=== PATIENT | female | born 1970 | race African-American/Black ===

== ENCOUNTER 2017-08-03 14:40 | Emergency (ER) | payer BC ==
[2017-08-03 15:28] LABS: Bilirubin Negative (Negative); Blood, Urine Small (Negative); Clarity CLEAR (Clear); Glucose, Urine (Dipstick) Negative (Negative); Leukocyte Negative (Negative); Nitrite Negative (Negative); Protein, Urine (Dipstick) Negative (Neg-Trace); Specific Gravity, Urine 1.041 (1.002-1.036); pH, Urine 5.5 (5.0-9.0)
[2017-08-03 15:35] LABS: Bacteria/HPF None Seen HPF (None Seen); Hyaline Casts/LPF 0-3 HYALINE CAST LPF (0-3 Hyaline); Pathc Cast-AUWi Flag 0.58 (0-2.49); RBC/HPF 21-50 HPF (0-3); WBC/HPF 0-3 HPF (0-3)
[2017-08-03 15:49] LABS: #Eosinphils 0.1 thou/uL (0.0-0.7); #Lymphocytes 1.8 thou/uL (1.20-3.40); #Monocytes 0.9 thou/uL (0.11-0.59); #Neutrophils 3.5 thou/uL (1.40-6.50); %Basophils 0.8 % (0.0-1.0); %Eosinophils 1.3 % (0.0-10.0); %Lymphocytes 28.5 % (21.0-51.0); %Monocytes 14.1 % (0.0-10.0); %Neutrophils 55.4 % (42.0-75.0); Hemoglobin 12.3 g/dL (12.0-16.0); Mean Corpuscular HGB CONC 33.8 g/dL (32.0-36.0); Mean Corpuscular Hemoglobin 31.7 pg (27.0-31.0); Mean Corpuscular Volume 93.8 fl (81.0-99.0); Mean Platelet Volume 6.7 fL (7.4-10.4); Platelet Count 242 thou/uL (130-400); RBC Distribution Width 12.1 % (11.5-14.5); Red Blood Cell (RBC) Count 3.87 mill/uL (4.20-5.40); White Blood Cell (WBC) Count 6.4 thou/uL (4.8-10.8)
[2017-08-03 16:12] LABS: ALT (SGPT) 31 U/L (8-55); AST (SGOT) 35 U/L (5-34); Albumin 3.8 g/dL (3.5-5.0); Alkaline Phosphatase 64 U/L (40-150); Anion Gap 9 mmol/L (10-20); BUN (Urea Nitrogen) 16 mg/dL (7.0-18.7); Bilirubin, Total 0.3 mg/dL (0.2-1.2); Calc. Creatinine Clearance 0 mL/min (70-130); Calcium 9.2 mg/dL (7.8-10.44); Carbon Dioxide 28 mmol/L (22-29); Chloride 106 mmol/L (98-107); Estimated GFR-MDRD 80; Globulin 3.5 g/dL (2.4-3.5); Glucose 84 mg/dL (70-105); Potassium 3.5 mmol/L (3.5-5.1); Protein, Total 7.3 g/dL (6.0-8.3); Sodium 139 mmol/L (136-145)
== END 2017-08-03 16:44 | disposition home or self-care (01) ==
LOC: ERS 14:40
DX: K13.0 Diseases of lips (principal); R11.2 Nausea with vomiting, unspecified; R31.9 Hematuria, unspecified; F41.9 Anxiety disorder, unspecified; Z79.899 Other long term (current) drug therapy
CPT/HCPCS: 36415; 80053; 81003; 81015; 85025; 99284

== ENCOUNTER 2017-08-29 17:13 | Emergency (ER) | payer BC, SELFPAY | END 2017-08-29 17:30 | disposition home or self-care (01) | LOC: ERS 17:13 | DX: L08.9 Local infection of the skin and subcutaneous tissue, unspecified (principal); F41.9 Anxiety disorder, unspecified | CPT/HCPCS: 99282 ==

== ENCOUNTER 2017-09-26 11:37 | Emergency (ER) | payer SELFPAY | END 2017-09-26 13:37 | disposition home or self-care (01) | LOC: ERS 11:37 | DX: M25.561 Pain in right knee (principal); F41.9 Anxiety disorder, unspecified; Z79.899 Other long term (current) drug therapy | CPT/HCPCS: 99283 ==

== ENCOUNTER 2017-10-11 14:38 | Emergency (ER) | payer SELFPAY ==
[2017-10-11 15:39] LABS: #Basophils 0.1 thou/uL (0.0-0.2); #Eosinphils 0.1 thou/uL (0.0-0.7); #Lymphocytes 2.4 thou/uL (1.20-3.40); #Monocytes 0.8 thou/uL (0.11-0.59); #Neutrophils 5.3 thou/uL (1.40-6.50); %Basophils 0.6 % (0.0-1.0); %Eosinophils 1.4 % (0.0-10.0); %Lymphocytes 27.8 % (21.0-51.0); %Neutrophils 61.1 % (42.0-75.0); Hemoglobin 12.1 g/dL (12.0-16.0); Mean Corpuscular HGB CONC 33.5 g/dL (32.0-36.0); Mean Corpuscular Hemoglobin 32.1 pg (27.0-31.0); Mean Corpuscular Volume 95.6 fl (81.0-99.0); Mean Platelet Volume 6.7 fL (7.4-10.4); Platelet Count 304 thou/uL (130-400); RBC Distribution Width 11.9 % (11.5-14.5); Red Blood Cell (RBC) Count 3.77 mill/uL (4.20-5.40); White Blood Cell (WBC) Count 8.7 thou/uL (4.8-10.8)
[2017-10-11 16:03] LABS: ALT (SGPT) 27 U/L (8-55); AST (SGOT) 33 U/L (5-34); Albumin 3.8 g/dL (3.5-5.0); Alkaline Phosphatase 63 U/L (40-150); Anion Gap 9 mmol/L (10-20); BUN (Urea Nitrogen) 15 mg/dL (7.0-18.7); Bilirubin, Total 0.3 mg/dL (0.2-1.2); Calc. Creatinine Clearance 0 mL/min (70-130); Calcium 9.3 mg/dL (7.8-10.44); Carbon Dioxide 27 mmol/L (22-29); Chloride 107 mmol/L (98-107); Estimated GFR-MDRD Greater than 90; Globulin 3.6 g/dL (2.4-3.5); Glucose 79 mg/dL (70-105); Lipase 46 U/L (8-78); Potassium 3.8 mmol/L (3.5-5.1); Protein, Total 7.4 g/dL (6.0-8.3); Sodium 139 mmol/L (136-145)
[2017-10-11 17:30] LABS: Bilirubin Negative (Negative); Blood, Urine Negative (Negative); Clarity CLEAR (Clear); Glucose, Urine (Dipstick) Negative (Negative); Leukocyte Negative (Negative); Nitrite Negative (Negative); Protein, Urine (Dipstick) Negative (Neg-Trace); Specific Gravity, Urine 1.028 (1.002-1.036); pH, Urine 6.5 (5.0-9.0)
[2017-10-11 17:31] LABS: Pregnancy Test - Urine (BHCG) Negative (Negative); Pregu Control Background? CLEAR/WHITE (CLR/WHITE); Pregu Control Bar Appear? YES (CONTROL BAR); Specific Gravity 1.028 (1.002-1.036)
== END 2017-10-11 17:34 | disposition home or self-care (01) ==
LOC: ERS 14:38
DX: R11.2 Nausea with vomiting, unspecified (principal); F41.9 Anxiety disorder, unspecified; Z79.899 Other long term (current) drug therapy
CPT/HCPCS: 36415; 80053; 81003; 81025; 82274; 83690; 85025; 99284

== ENCOUNTER 2017-10-20 05:39 | Emergency (ER) | payer SELFPAY | END 2017-10-20 09:15 | disposition home or self-care (01) | LOC: ERS 05:39 | DX: M23.206 Derangement of unspecified meniscus due to old tear or injury, right knee (principal); M25.561 Pain in right knee; F41.9 Anxiety disorder, unspecified; Z79.899 Other long term (current) drug therapy | CPT/HCPCS: 99283 ==

== ENCOUNTER 2018-02-06 15:34 | Emergency (ER) | payer SELFPAY | END 2018-02-06 16:03 | disposition home or self-care (01) | LOC: ERS 15:34 | DX: S70.01XA Contusion of right hip, initial encounter (principal); S40.021A Contusion of right upper arm, initial encounter; W18.30XA Fall on same level, unspecified, initial encounter | CPT/HCPCS: 99283 ==

== ENCOUNTER 2018-05-18 14:01 | Emergency (ER) | payer SELFPAY ==
[2018-05-18] MEDS ORDERED: Ibuprofen 200 MG TAB ONE (14:32)
--- NOTE | 2018-05-18 15:16 | RAD ---
THREE VIEWS RIGHT THIRD TOE: Comparison: None. History: Right third toe pain and swelling. FINDINGS: Three views of the right third toe shows a spiral fracture of the proximal phalanx with surrounding s oft tissue swelling. This fracture is extraarticular. No other fractures or dislocations are seen. IMPRESSION: Proximal phalanx fracture of the third toe. POS: [facility]
== END 2018-05-18 15:16 | disposition home or self-care (01) ==
LOC: ERS 14:01
DX: S92.511A Displaced fracture of proximal phalanx of right lesser toe(s), initial encounter for closed fracture (principal); F41.9 Anxiety disorder, unspecified; F32.9 Major depressive disorder, single episode, unspecified; W01.0XXA Fall on same level from slipping, tripping and stumbling without subsequent striking against object, initial encounter

== ENCOUNTER 2018-09-18 10:03 | Emergency (ER) | payer SELFPAY | END 2018-09-18 10:45 | disposition home or self-care (01) | LOC: ERS 10:03 | DX: M25.561 Pain in right knee (principal); F41.9 Anxiety disorder, unspecified; Z79.899 Other long term (current) drug therapy | CPT/HCPCS: 99283 ==

== ENCOUNTER 2019-12-15 08:02 | Emergency (ER) | payer OTHER ==
[2019-12-15] MEDS ORDERED: Ibuprofen 800 MG TAB ONE (09:19)
--- NOTE | 2019-12-15 09:39 | RAD ---
EXAM: 4 views of the right knee HISTORY: Knee pain after fall COMPARISON: None FINDINGS: No knee effusion is seen. There is no evidence of acute fracture or dislocation. Mild femor otibial compartment degenerative changes are seen. No soft tissue swelling is present. IMPRESSION: Mild degenerative changes without evidence of acute osseous abnormality.
--- NOTE | 2019-12-15 10:02 | RAD ---
RIGHT KNEE 1 VIEW: Date: 12/15/2019 HISTORY: Injury from a fall. COMPARISON: Additional views right knee dated 12/15/2019. FINDINGS: Osteoarthrosis and degenerative changes of the right knee joint. The sunrise view demonstrates some m inimal arthrosis changes, particularly involving the lateral femoral patellar compartment. No acute f racture. IMPRESSION: Arthrosis and degenerative change without acute fracture. POS: [facility]
[2019-12-16 13:43] LABS: SARS-CoV-2 MS2 Positive; SARS-CoV-2 N Gene Negative; SARS-CoV-2 S Gene Negative; SARS-CoV-2 by NAA Not Detected (NotDetected); SARS-CoV-2 orf1ab Negative
== END 2019-12-15 09:48 | disposition home or self-care (01) ==
LOC: ERS 08:02
DX: M25.561 Pain in right knee (principal); R19.7 Diarrhea, unspecified; Z20.828 Contact with and (suspected) exposure to other viral communicable diseases; W18.30XA Fall on same level, unspecified, initial encounter
CPT/HCPCS: 87635; U0003

== ENCOUNTER 2020-07-22 10:49 | Emergency (ER) | payer SELFPAY ==
[2020-07-22] MEDS ORDERED: HYDROcodone/Acetaminophen 5/325 mg Tablet ONE (12:49)
== END 2020-07-22 13:17 | disposition home or self-care (01) ==
LOC: ERS 10:49
DX: S62.654A Nondisplaced fracture of middle phalanx of right ring finger, initial encounter for closed fracture (principal); M25.561 Pain in right knee; W19.XXXA Unspecified fall, initial encounter; Z79.899 Other long term (current) drug therapy

== ENCOUNTER 2020-08-18 12:07 | Emergency (ER) | payer OTHER, SELFPAY ==
[2020-08-18] MEDS ORDERED: Ketorolac Tromethamine 30 MG/ML VIAL ONE (12:36)
== END 2020-08-18 13:42 | disposition home or self-care (01) ==
LOC: ERS 12:07
DX: M25.561 Pain in right knee (principal); S62.650D Nondisplaced fracture of middle phalanx of right index finger, subsequent encounter for fracture with routine healing; I10 Essential (primary) hypertension; Z79.899 Other long term (current) drug therapy; W01.0XXD Fall on same level from slipping, tripping and stumbling without subsequent striking against object, subsequent encounter
CPT/HCPCS: 96372; J1885

== ENCOUNTER 2021-04-03 08:37 | Emergency (ER) | payer SELFPAY ==
[2021-04-03] MEDS ORDERED: Ketorolac Tromethamine 30 MG/ML VIAL ONE (09:20)
[2021-04-03 09:39] LABS: Bacteria/HPF None Seen HPF (None Seen); Bilirubin Negative (Negative); Blood, Urine Trace (Negative); Clarity Clear (Clear); Glucose, Urine (Dipstick) Normal (Negative); Ketone, Urine Negative (Negative); Leukocyte Negative Leu/uL (Negative); Nitrite Negative (Negative); Protein, Urine (Dipstick) Negative (Neg-Trace); RBC/HPF 0-3 HPF (0-3); Specific Gravity, Urine 1.015 (1.002-1.036); Squamous Epithelial 0-3 HPF (0-3); Urobilinogen Normal mg/dL (Less than 2); WBC/HPF 0-3 HPF (0-3); pH, Urine 6.5 (5.0-9.0)
[2021-04-03 09:43] LABS: Pregnancy Test - Urine (BHCG) Negative (Negative); Pregu Control Background? CLEAR/WHITE (CLR/WHITE); Pregu Control Bar Appear? YES (CONTROL BAR); Specific Gravity 1.015 (1.002-1.036)
== END 2021-04-03 10:52 | disposition home or self-care (01) ==
LOC: ERS 08:37
DX: M54.6 Pain in thoracic spine (principal); R31.9 Hematuria, unspecified; I10 Essential (primary) hypertension
CPT/HCPCS: 74176; 81003; 81015; 81025; 96372; 99283; J1885

== ENCOUNTER 2021-05-12 12:11 | Emergency (ER) | payer SELFPAY ==
[2021-05-12] MEDS ORDERED: Acetaminophen 500 MG TAB ONE (13:27)
[2021-05-12] MEDS ORDERED: Ondansetron ODT 4 MG TAB ONE (13:27)
[2021-05-12] MEDS ORDERED: Dicyclomine 20 MG TAB ONE (13:52)
[2021-05-12] MEDS ORDERED: Pantoprazole 40 MG VIAL ONE (13:52)
[2021-05-12] MEDS ORDERED: Ondansetron PF 4 MG/2 ML Vial ONE (13:52)
[2021-05-12 14:07] LABS: #Eosinphils 0.2 thou/uL (0.0-0.7); #Lymphocytes 0.9 thou/uL (1.20-3.40); #Monocytes 0.5 thou/uL (0.11-0.59); #Neutrophils 7.1 thou/uL (1.40-6.50); %Basophils 0.3 % (0.0-1.0); %Eosinophils 2.2 % (0.0-10.0); %Lymphocytes 9.9 % (21.0-51.0); %Monocytes 6.2 % (0.0-10.0); %Neutrophils 81.3 % (42.0-75.0); Hemoglobin 14.8 g/dL (12.0-16.0); Mean Corpuscular HGB CONC 34.4 g/dL (32.0-36.0); Mean Corpuscular Hemoglobin 33.7 pg (27.0-31.0); Mean Platelet Volume 6.8 fL (7.4-10.4); Platelet Count 211 thou/uL (130-400); RBC Distribution Width 12.1 % (11.5-14.5); Red Blood Cell (RBC) Count 4.38 mill/uL (4.20-5.40); White Blood Cell (WBC) Count 8.8 thou/uL (4.8-10.8)
[2021-05-12 14:27] LABS: ALT (SGPT) 26 U/L (8-55); AST (SGOT) 30 U/L (5-34); Alkaline Phosphatase 58 U/L (40-110); Anion Gap 10 mmol/L (10-20); BUN (Urea Nitrogen) 17 mg/dL (7.0-18.7); Bilirubin, Total 0.5 mg/dL (0.2-1.2); Calc. Creatinine Clearance 0 mL/min (70-130); Carbon Dioxide 28 mmol/L (22-29); Chloride 104 mmol/L (98-107); Globulin 3.7 g/dL (2.4-3.5); Glucose 86 mg/dL (70-105); Potassium 4.2 mmol/L (3.5-5.1); Protein, Total 7.7 g/dL (6.0-8.3); Sodium 138 mmol/L (136-145)
[2021-05-13 12:19] LABS: SARS-CoV-2 PCR by NAA Not Detected (NotDetected)
== END 2021-05-12 15:46 | disposition home or self-care (01) ==
LOC: ERS 12:11
DX: K52.9 Noninfective gastroenteritis and colitis, unspecified (principal); Z20.822 Contact with and (suspected) exposure to COVID-19; I10 Essential (primary) hypertension
CPT/HCPCS: 36415; 80053; 85025; 87804; 96374; 96375; C9113; J2405; Q0162; U0003; U0005

== ENCOUNTER 2022-01-07 13:24 | Emergency (ER) | payer SELFPAY ==
[2022-01-07] MEDS ORDERED: HYDROcodone/Acetaminophen 5/325 mg Tablet ONE (14:33)
[2022-01-07] MEDS ORDERED: Ketorolac Tromethamine 30 MG/ML VIAL ONE (14:33)
== END 2022-01-07 16:08 | disposition home or self-care (01) ==
LOC: ERS 13:24
DX: M25.562 Pain in left knee (principal); M25.462 Effusion, left knee; E78.5 Hyperlipidemia, unspecified; I10 Essential (primary) hypertension; F17.200 Nicotine dependence, unspecified, uncomplicated
CPT/HCPCS: 96372; J1885

== ENCOUNTER 2023-02-25 11:36 | Outpatient (CLI) | payer OTHER | END 2023-02-25 11:37 | disposition home or self-care (01) | LOC: BICRAD 11:36 | PROVIDERS: ATTEND Preventive Medicine Occupational Medicine | DX: M23.91 Unspecified internal derangement of right knee (principal); M17.11 Unilateral primary osteoarthritis, right knee; M25.461 Effusion, right knee ==